=== PATIENT | female | born 1955 | race Caucasian/White ===

== ENCOUNTER → 2016-07-18 | Outpatient (CLI) | payer OTHER | LOC: LAB 10:37 | DX: R07.89 Other chest pain (principal) ==

== ENCOUNTER 2019-04-23 23:59 | Emergency (ER) | payer OTHER ==
[~2019-04-23] VITALS: Ht 167.6 cm; Wt 54.5 kg
[2019-04-24] MEDS ORDERED: ZESTRIL30 MG PO (00:11)
[2019-04-24 01:00] LABS: ALBUMIN 4.5 g/dL (3.4-4.8)
[2019-04-24 01:01] LABS: POTASSIUM 4.4 mmol/L (3.5-5.1)
[2019-04-24 01:02] LABS: CALCIUM 9.8 mg/dL (8.3-10.5); EOS # 0.1 (0.04-0.40); EOS % 1.3 % (1.0-5.0); HEMATOCRIT 39.6 % (37.0-47.0); HEMOGLOBIN 13.1 g/dL (12.5-16.0); LYMPH# 1.3 (1.50-4.00); MEAN CELL VOLUME 88 fl (78-100); MEAN CORPUSCULAR HEMOGLOBIN 29 pg (27-31); MEAN CORPUSCULAR HGB CONC 33 g/dL (33-37); MONO # 0.4 (0.20-0.80); NEU # 3.5 (1.40-6.50); PLATELET COUNT 231 K/mm3 (130-400); RED BLOOD COUNT 4.52 M/mm3 (4.10-5.30); RED CELL DISTRIBUTION WIDTH 12.7 % (11.5-14.5); WHITE BLOOD COUNT 5.3 K/mm3 (4.8-10.8)
[2019-04-24 01:03] LABS: TOTAL PROTEIN 7.1 g/dL (6.2-8.1)
[2019-04-24 01:05] LABS: TOTAL BILIRUBIN 0.4 mg/dL (0.2-1.2)
[2019-04-24 05:18] VITALS: BP 130/78
== END 2019-04-24 05:18 | disposition home or self-care (01) ==
LOC: ED 23:59
PROVIDERS: Family Medicine
DX: R55 Syncope and collapse (principal); E86.9 Volume depletion, unspecified; I10 Essential (primary) hypertension
CPT/HCPCS: J7030

== ENCOUNTER → 2019-12-13 | Outpatient (CLI) | payer OTHER ==
[~2019-12-13] MED LIST: ZESTRIL30 MG PO
== END ==
LOC: MAMMO 15:49
DX: Z12.31 Encounter for screening mammogram for malignant neoplasm of breast (principal)

== ENCOUNTER → 2020-05-15 | Outpatient (CLI) | payer OTHER | LOC: RAD 15:27 | DX: I51.7 Cardiomegaly (principal); I10 Essential (primary) hypertension ==

== ENCOUNTER → 2020-11-07 | Outpatient (CLI) | payer MEDICARE, OTHER | LOC: RAD 08:25 → MAMMO 08:30 → RAD 08:30 | DX: Z13.820 Encounter for screening for osteoporosis (principal); M81.0 Age-related osteoporosis without current pathological fracture; Z78.0 Asymptomatic menopausal state ==